=== PATIENT | female | born 1980 | race Caucasian/White ===

== ENCOUNTER 2021-04-04 11:30 | Outpatient (REF) | payer OTHER, SELFPAY | END 2021-04-04 11:31 | disposition home or self-care (01) | LOC: HO.LNP 11:30 | PROVIDERS: Visit Provider Physician Assistant Medical | DX: J32.9 Chronic sinusitis, unspecified (principal); Z20.822 Contact with and (suspected) exposure to COVID-19 | CPT/HCPCS: U0003; U0005 ==

== ENCOUNTER 2021-08-31 03:08 | Emergency (ER) | payer OTHER, SELFPAY ==
[2021-08-31 03:10] VITALS: BP 99/60; PULSE 71; RESP 16; TEMP 35.5; O2SAT 98; BMI 32.8
== END 2021-08-31 05:00 | disposition left against medical advice (07) ==
PROVIDERS: Emergency Provider Emergency Medicine; PCP Internal Medicine
DX: R07.89 Other chest pain (principal)
CPT/HCPCS: 99281; 99282

== ENCOUNTER 2022-06-07 16:51 | Emergency (ER) | payer OTHER, SELFPAY ==
[2022-06-07 17:15] VITALS: BP 117/75; PULSE 82; RESP 20; TEMP 36.2; O2SAT 96; BMI 29.7
== END 2022-06-07 21:30 | disposition left against medical advice (07) ==
PROVIDERS: Emergency Provider Emergency Medicine; PCP Internal Medicine
DX: F11.20 Opioid dependence, uncomplicated (principal)
CPT/HCPCS: 99281

== ENCOUNTER 2024-01-26 10:44 | Outpatient (AMB) | payer OTHER, SELFPAY ==
[2024-01-26 10:57] VITALS: BP 130/90; PULSE 96; TEMP 36.6; O2SAT 96; BMI 34.3
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
== END 2024-01-26 12:33 | disposition home or self-care (01) ==
PROVIDERS: PCP Internal Medicine; Visit Provider Nurse Practitioner Family
DX: M79.89 Other specified soft tissue disorders (principal); L03.90 Cellulitis, unspecified
CPT/HCPCS: 99214

== ENCOUNTER 2024-01-26 11:28 | Outpatient (REF) | payer OTHER, SELFPAY ==
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
== END 2024-01-26 11:29 | disposition home or self-care (01) ==
LOC: HO.HMGCX 11:28
PROVIDERS: PCP Internal Medicine; Visit Provider Nurse Practitioner Family
DX: M79.89 Other specified soft tissue disorders (principal)
CPT/HCPCS: 73110; 73130

== ENCOUNTER 2024-01-27 22:25 | Inpatient (IN) | payer OTHER, SELFPAY ==
--- NOTE | ~2024-01-27 | XR_ITS ---
EXAMINATION: XR HAND, RIGHT CLINICAL INFORMATION: Entire hand is grossly swollen and red. Patient states that palm side of 3rd finger has a discharge and she had it looked at, at Urgent care yesterday and was put on antibiotics. COMPARISON: None available. TECHNIQUE: PA, lateral, and oblique views of the right hand. FINDINGS: Diffuse soft tissue swelling. No unexpected radiopaque foreign bodies. No acute fracture or subluxation. No focal cortical disruption or erosive changes to suspect osteomyelitis. XR/XR hand RT min 3V IMPRESSION: 1. Diffuse soft tissue swelling. 2. No acute fracture or malalignment. 3. No radiographic evidence of osteomyelitis.
[2024-01-27 22:49] VITALS: BP 117/66; PULSE 105; RESP 20; TEMP 37.2; O2SAT 98; BMI 32.9
[2024-01-28 00:01] LABS: MANUAL DIFF FLAG NO
[2024-01-28 00:05] LABS: Basophils Percent Auto 0.2 % (0-2); Eosinophils Percent Auto 0.2 % (0-4); Hematocrit 38.2 % (37.0-47.0); Hemoglobin 11.9 g/dl (12.0-16.0); Imm Gran Pct Auto 0.5 % (0.0-0.4); Lymphocytes Absolute Auto 1.1 X10*3/uL (1.2-4.9); Lymphocytes Percent Auto 6.3 % (20-40); Mean Corpuscular HGB Conc 31.2 g/dl (31.0-35.0); Mean Corpuscular Hemoglobin 25.6 pg (27.0-33.0); Mean Corpuscular Volume 82.3 fL (80.0-98.0); Mean Platelet Volume 9.4 fL (9.4-12.3); Monocytes Absolute Auto 1.2 X10*3/uL (0.1-1.2); Monocytes Percent Auto 6.8 % (2-11); Neutrophils Absolute Auto 15.6 x10*3/uL (2.0-8.3); Platelet Count 276 X10*3/uL (160-400); Red Blood Count 4.64 X10*6/uL (4.20-5.50); Red Cell Distribution Width 15.9 % (11.0-16.0); White Blood Count 18.2 X10*3/uL (4.8-10.8)
[2024-01-28 00:16] LABS: Alanine Aminotransferase 20 U/L (0-31); Albumin Level 3.6 g/dL (3.5-5.0); Alkaline Phosphatase 90 U/L (39-117); Anion Gap 15 (12-20); Aspartate Amino Transferase 17 U/L (5-31); Bilirubin Total 0.3 mg/dL (0.0-1.0); Blood Urea Nitrogen 15 mg/dL (9-16); C Reactive Protein 27.72 mg/dL (< or = 0.50); Calcium 9.3 mg/dL (8.4-10.2); Carbon Dioxide 20 mmol/L (22-29); Chloride 107 mmol/L (96-108); Creatinine Clr Calc Pharmacy 96.6; Estimated Glomerular Filt Rate > 60; Glucose Random 148 mg/dL (60-115); Sodium 138 mmol/L (135-145); Total Protein 8.6 g/dL (6.5-8.0)
[2024-01-28 00:42] LABS: Erythrocyte Sedimentation Rate 69 MM/HR (0-20)
--- NOTE | 2024-01-28 02:38 | ED.EXTPRO ---
HPI - Extremity Problem General Chief complaint: Extremity Problem Stated complaint: R finger swollen / weeping Time Seen by Provider: 01/28/24 01:57 Source: patient and old records reviewed Mode of arrival: ambulatory Limitations: no limitations History of Present Illness ED Provider: BLAISE ESCOBAR Narrative: 43 yo female with PMH of opiate use disorder notes she only sniffs now, R hand dominant, asthma here with c/o R middle finger infection and pain/redness swelling unknown cause has worsened went to urgent care yesterday started on cephalexin but has not improved. The patient denies prior infection in this area. Has pain. Also notes she wants to get back on methadone. MD Complaint: extremity swelling and other (finger infection) Onset (ago): day(s) (few) Pain Consistency: constant Location: right and upper extremity Quality: aching Radiation: none Relieving factors: immobilization Exacerbating factors: palpation Associated symptoms: denies other symptoms Context: other (unknown cause) Related Data Previous Rx's ?Medication ?Instructions ?Recorded fluticasone propionate 50 1 spray intranasal DAILY #16 grams 04/04/21 mcg/actuation nasal spray,suspension albuterol sulfate 90 mcg/actuation 2 puff PO Q4H PRN shortness of 04/08/21 aerosol inhaler breath or wheezing 30 days #8.5 grams cephalexin 500 mg capsule 500 mg PO BID 7 days #14 caps 01/26/24 ibuprofen 800 mg tablet 800 mg PO Q8H #90 tabs 01/26/24 Allergies Allergy/AdvReac Type Severity Reaction Status Date / Time acetaminophen [From TYLENOL] Allergy Intermediate RASH Verified 01/27/24 22:53 Review of Systems Review of Systems: Constitutional : No Fever, No Chills ENT/Mouth : No sore throat, No Rhinorrhea Eyes: No Eye Pain, No Swelling, No Redness Cardiovascular : No Chest Pain, No SOB Respiratory : No Cough, No Sputum Gastrointestinal : No Nausea, No Vomiting, No Diarrhea, No abdominal Pain Genitourinary : No Dysuria, No Hematuria Musculoskeletal : pos joint pain, No Myalgias, pos Joint Swelling Skin : pos Skin Lesions, positive skin rash Neuro : No Weakness, No Numbness, No Headache Psych : No Anxiety, No Depression Heme/Lymph: No Bruising, No Bleeding,No Lymphadenopathy Endocrine : No Polyuria, No Polydipsia All other systems reviewed and are negative PMFSH Past Medical History Attestation statement: The following information was validated with the patient. Source: old records reviewed Medical History Neuropathy Migraines Asthma Hepatitis C Epilepsy Social History Social History Patient Tobacco Use Status: Current everyday Tobacco user Smoked in Last 30 Days: Yes Use of substances other than those prescribed or required for medical reasons: Yes Substance Use Type: Heroin Substance Use Frequency: Occasionally Last Used Substance: Days (ago) Advance Directives: No Advance Directives Information Provided: Yes Do you have a plan to hurt others: No Plan Patient : No Physical Exam Vital Signs: Vital Signs: Last Vital Signs Temp 98.9 F 01/27/24 22:49 Pulse 105 H 01/27/24 22:49 Resp 20 01/27/24 22:49 BP 117/66 01/27/24 22:49 Pulse Ox 98 01/27/24 22:49 O2 Del Method Room Air 01/27/24 22:49 BMI result Body Mass Index 32.9 Appearance: Alert. Oriented X3. No acute distress. Eyes: Pupils equal, round and reactive to light. ENT: Pharynx normal. Neck: Normal inspection. Neck supple. CVS: Normal heart rate and rhythm. Pulses normal. Respiratory: No respiratory distress. Breath sounds normal. Abdomen: Soft and nontender. Skin: Skin warm and dry. Normal skin color. Extremities: R middle finger sausage finger swollen and red distal NV intact tenderness to prox tendon sheath and she cannot bend or flex and finger is held contracted. ttp please see pictures below Neuro: Oriented X 3. No motor deficit. No sensory deficit. Medical Decision Making Medical Decision Making MDM Narrative: 43 yo female with PMH of opiate use disorder notes she only sniffs now, R hand dominant, asthma who has had R middle finger pain and swelling for the past few days doesn't know why the finger is concerning for abscess and tendon sheath infection she will need to be kept NPO and started on IV antibiotics, cultures, lactic acid and 40mg methadone ordered as she wants to get back on methadone. Consult to Cristina from ortho - keep NPO will see in AM. Differential Diagnosis Differential Diagnoses: The differential diagnosis associated with the presentation includes abscess, tendon sheath infection Admission/Observation Consideration of admission/observation: Escalation of care including admission/observation considered admit for IV antibiotics Consult Healthcare Provider Management of the patient was discussed with: Hospitalist (will admit) and Defensive Secondary Coach (orthopedics aware keep NPO) Lab Data MDM Lab Attestation statement: I reviewed the patient's lab results. 01/27/24 23:55 01/27/24 23:55 Labs: Lab Results 01/27/24 Range/Units 23:55 WBC 18.2 H (4.8-10.8) X10*3/uL RBC 4.64 (4.20-5.50) X10*6/uL Hgb 11.9 L (12.0-16.0) g/dl Hct 38.2 (37.0-47.0) % MCV 82.3 (80.0-98.0) fL MCH 25.6 L (27.0-33.0) pg MCHC 31.2 (31.0-35.0) g/dl RDW 15.9 (11.0-16.0) % Plt Count 276 (160-400) X10*3/uL MPV 9.4 (9.4-12.3) fL Immature Gran % (Auto) 0.5 H (0.0-0.4) % Neut % (Auto) 86.0 H (45-73) % Lymph % (Auto) 6.3 L (20-40) % [place] % (Auto) 6.8 (2-11) % Eos % (Auto) 0.2 (0-4) % Baso % (Auto) 0.2 (0-2) % Lymph # (Auto) 1.1 L (1.2-4.9) X10*3/uL [place] # (Auto) 1.2 (0.1-1.2) X10*3/uL Eos # (Auto) 0.0 (0.0-0.4) X10*3/uL Baso # (Auto) 0.0 (0.0-0.2) X10*3/uL Abs Immat Gran (auto) 0.10 H (0.00-0.03) X10*3/uL Absolute Neuts (auto) 15.6 H (2.0-8.3) x10*3/uL Absolute Nucleated RBC 0.000 (0.0-0.012) X10*3/uL Nucleated RBC % (auto) 0.0 (0.0-0.2) /100WBC ESR 69 H (0-20) MM/HR Sodium 138 (135-145) mmol/L Potassium 4.0 (3.3-5.1) mmol/L Chloride 107 (96-108) mmol/L Carbon Dioxide 20 L (22-29) mmol/L Anion Gap 15 (12-20) BUN 15 (9-16) mg/dL Creatinine 0.89 (0.5-1.4) mg/dL Estim Creat Clear Calc 96.6 Estimated GFR > 60 Random Glucose 148 H (60-115) mg/dL Calcium 9.3 (8.4-10.2) mg/dL Total Bilirubin 0.3 (0.0-1.0) mg/dL AST 17 (5-31) U/L ALT 20 (0-31) U/L Alkaline Phosphatase 90 (39-117) U/L C-Reactive Protein 27.72 H (< or = 0.50) mg/dL Total Protein 8.6 H (6.5-8.0) g/dL Albumin 3.6 (3.5-5.0) g/dL Independent Interpretation I performed an independent interpretation of an: Plain X-Ray (no FB) Radiology Impression Discussion of test interpretation with radiology: I have reviewed the radiologist's reading. External Record Review External record reviewed: Inpatient record Discharge Plan Discharge Clinical Impression: Cellulitis, Finger infection Patient Disposition: Admitted As Inpatient Prescriptions: No Action albuterol sulfate 90 mcg/actuation HFA aerosol inhaler 2 puff PO Q4H PRN (Reason: shortness of breath or wheezing) 30 Days Qty: 8.5 6RF fluticasone propionate 50 mcg/actuation spray,suspension 1 spray intranasal DAILY Qty: 16 0RF Rx Instructions: administer into each nostril cephalexin 500 mg capsule 500 mg PO BID 7 Days Qty: 14 0RF ibuprofen 800 mg tablet 800 mg PO Q8H Qty: 90 0RF Print Language: Cymraes
[2024-01-28] MEDS: 0.9 % Sodium Chloride 1,000 ML 999 ML IV (02:46)
[2024-01-28] MEDS: methADONE HCl 20 MG/2 ML ORAL.CONC 40 MG PO (02:47)
[2024-01-28] MEDS: Piperacillin Sodium/Tazobactam 3.375 GM in 0.9 % Sodium Chloride 50 ML IV (02:54)
--- NOTE | 2024-01-28 02:54 | PM.IMHP ---
History of Present Illness Date of Service: 01/28/24 Chief Complaint: Finger infection This is a 43-year-old female with pertinent history of opiate use disorder, seizure disorder, neuropathy who presents to the emergency department for evaluation of right finger swelling and pain. Patient states it started few days prior to presentation. Initially she had pain in her right middle finger. This progressed and she noted that it was red and swollen. Patient went to urgent care 1 day prior to presentation and was prescribed p.o. antibiotics but no improvement noted. On the day of presentation, patient states it has been draining purulent fluid. She is unable to bend or flex the finger. States she currently only sniffs drugs, last used intravenously 2 months ago. No previous infection. No fever, chills, nausea, vomiting, chest discomfort, palpitations, shortness of breath, abdominal pain changes in urinary or bowel habits. In the emergency department, patient was found to be septic and initiated on empiric IV antibiotics. Orthopedic surgery consulted who will take the patient to the OR in a.m. FORMERLY [facility], [facility] Medical History Neuropathy Migraines Asthma Hepatitis C Epilepsy Social History Patient Tobacco Use Status: Current everyday Tobacco user Smoked in Last 30 Days: Yes Use of substances other than those prescribed or required for medical reasons: Yes Substance Use Type: Heroin Substance Use Frequency: Occasionally Last Used Substance: Days (ago) Advance Directives: No Advance Directives Information Provided: Yes Do you have a plan to hurt others: No Plan Patient : No Meds Allergies Allergy/AdvReac Type Severity Reaction Status Date / Time acetaminophen [From TYLENOL] Allergy Intermediate RASH Verified 01/27/24 22:53 Active Medications: Current Medications Sodium Chloride (Ns) 1,000 mls @ 999 mls/hr IV .Q1H1M ONE Stop: 01/28/24 03:02 Last Admin: 01/28/24 02:46 Dose: 999 mls/hr Vancomycin HCl (Vancomycin/Ns) 2,000 mg in 500 mls @ 250 mls/hr IV ONCE ONE Stop: 01/28/24 04:01 Pharmacy Consult (Consult Rx Vancomycin Dosing) 1 each MISCELLANE DAILY PRN PRN Reason: Consult order Physical Exam Vital Signs and Narrative: Vital Signs: Last Vital Signs Temp 98.9 F 06/07/24 22:49 Pulse 105 H 01/27/24 22:49 Resp 20 01/27/24 22:49 BP 117/66 01/27/24 22:49 Pulse Ox 98 01/27/24 22:49 O2 Del Method Room Air 01/27/24 22:49 BMI result Body Mass Index 32.9 Middle-aged female lying in bed in no distress Neck supple, no JVD Regular rate and rhythm, S1-S2 heard Regular breath sounds bilaterally, no wheezing or crackles appreciated Abdomen soft nontender, no guarding, no rigidity Patient is awake, alert and oriented to self, place, time and person ; no focal motor deficit Psych: Normal mood Right middle finger swollen, erythematous, tenderness present with purulent drainage as pictured below Skin: Other: Results Labs 01/27/24 23:55 01/27/24 23:55 Labs: Laboratory Results - last 24 hr 01/27/24 23:55 MCV 82.3 MCH 25.6 L MCHC 31.2 RDW 15.9 Plt Count 276 MPV 9.4 Immature Gran % (Auto) 0.5 H Neut % (Auto) 86.0 H Lymph % (Auto) 6.3 L [place] % (Auto) 6.8 Eos % (Auto) 0.2 Baso % (Auto) 0.2 Lymph # (Auto) 1.1 L [place] # (Auto) 1.2 Eos # (Auto) 0.0 Baso # (Auto) 0.0 Abs Immat Gran (auto) 0.10 H Absolute Neuts (auto) 15.6 H Absolute Nucleated RBC 0.000 Nucleated RBC % (auto) 0.0 ESR 69 H Anion Gap 15 Estim Creat Clear Calc 96.6 Estimated GFR > 60 Random Glucose 148 H Calcium 9.3 Total Bilirubin 0.3 AST 17 ALT 20 Alkaline Phosphatase 90 C-Reactive Protein 27.72 H Total Protein 8.6 H Albumin 3.6 Imaging Radiologist's Impressions: Impressions Hand X-Ray 01/27/24 23:53 IMPRESSION: 1. Diffuse soft tissue swelling. 2. No acute fracture or malalignment. 3. No radiographic evidence of osteomyelitis. Assessment and Plan (1) Finger infection: Status: Acute (2) Cellulitis: Qualifiers: Laterality: right Site of cellulitis: extremity Site of cellulitis of extremity: upper extremity Qualified Code(s): L03.113 - Cellulitis of right upper limb Status: Acute Plan This is a 43-year-old female with pertinent history of opiate use disorder, seizure disorder, neuropathy who presents to the emergency department for evaluation of right finger swelling and pain. #. Sepsis due to right middle finger purulent cellulitis: With concerns for underlying infection. Resuscitated with IV crystalloids. Initiating empiric IV antibiotics. Orthopedic surgery consulted who will evaluate the patient in a.m.. Will keep patient NPO. Lactic acid and blood culture obtained #. Polysubstance use disorder: UDS pending. Monitor for withdrawals. Addiction Team consulted #. Seizure disorder: On Depakote #. Peripheral neuropathy: On gabapentin Med rec pending DVT prophylaxis: Mechanical Full code Admit as inpatient and will require two night minimum hospital stay for IV antibiotics (as above), which is not possible in a lesser acute setting. Specialist consult pending Quality Stroke Does the patient have a stroke diagnosis?: No VTE Prior VTE?: No VTE Risk Level:: Medical - moderate - high VTE Device Contraindication: N/A - Device Ordered VTE Drug Contraindication: Treatment Not Indicated
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
[2024-01-28 03:10] LABS: Lactic Acid 1.4 mmol/L (0.5-2.0)
[2024-01-28 03:12] VITALS: BP 125/72; PULSE 85; RESP 16; TEMP 36.8; O2SAT 96
[2024-01-28] MEDS: vancomycin/NS 2,000 MG/500 ML PLAST..BAG 250 MG IV (03:36)
[2024-01-28] MEDS: Magnesium Hydrox/Alum Hydrox 30 ML ORAL.SUSP PO (04:06)
[2024-01-28 04:09] LABS: Amphetamine Screen Urine Not Detected (Not Detect); Barbiturates, Urine Not Detected (Not Detect); Benzodiazepines Screen Urine Not Detected (Not Detect); Buprenorphine Scr Not Detected (Not Detect); Cannabinoid Screen Urine Not Detected (Not Detect); Cocaine Screen Urine POSITIVE (Not Detect); Fentanyl, urine POSITIVE (Not Detect); Methadone Screen, Urine Not Detected (Not Detect); Opiate Screen Urine POSITIVE (Not Detect); Oxycodone Screen Urine Not Detected (Not Detect); Phencyclidine Screen Urine Not Detected (Not Detect)
[2024-01-28 06:01] VITALS: BP 113/58; PULSE 74; RESP 16; TEMP 36.9; O2SAT 97
[2024-01-28 06:33] LABS: Basophils Percent Auto 0.1 % (0-2); Eosinophils Absolute Auto 0.1 X10*3/uL (0.0-0.4); Eosinophils Percent Auto 0.7 % (0-4); Hematocrit 33.8 % (37.0-47.0); Hemoglobin 10.4 g/dl (12.0-16.0); Imm Gran Abs Auto 0.08 X10*3/uL (0.00-0.03); Imm Gran Pct Auto 0.5 % (0.0-0.4); Lymphocytes Percent Auto 12.2 % (20-40); Mean Corpuscular HGB Conc 30.8 g/dl (31.0-35.0); Mean Corpuscular Hemoglobin 26.1 pg (27.0-33.0); Mean Corpuscular Volume 84.9 fL (80.0-98.0); Mean Platelet Volume 10.9 fL (9.4-12.3); Monocytes Absolute Auto 1.3 X10*3/uL (0.1-1.2); Monocytes Percent Auto 8.1 % (2-11); Neutrophils Absolute Auto 12.6 x10*3/uL (2.0-8.3); Neutrophils Percent Auto 78.4 % (45-73); Platelet Count 221 X10*3/uL (160-400); Red Blood Count 3.98 X10*6/uL (4.20-5.50); Red Cell Distribution Width 15.9 % (11.0-16.0); White Blood Count 16.1 X10*3/uL (4.8-10.8)
[2024-01-28 06:48] LABS: Anion Gap 15 (12-20); Blood Urea Nitrogen 14 mg/dL (9-16); Calcium 8.7 mg/dL (8.4-10.2); Carbon Dioxide 20 mmol/L (22-29); Chloride 109 mmol/L (96-108); Creatinine Clr Calc Pharmacy 103.5; Estimated Glomerular Filt Rate > 60; Glucose Random 97 mg/dL (60-115); Potassium 3.7 mmol/L (3.3-5.1); Sodium 140 mmol/L (135-145)
--- NOTE | 2024-01-28 07:30 | P.CONOP_ITS ---
History of Present Illness HPI Consult date: 01/28/24 Chief complaint: Finger Infection Narrative: Ms Valverde is a 43 yo female with past medical history of opiate use disorder, seizure disorder, neuropathy who presents to the emergency department for evaluation of right finger swelling and pain. Patient states it started few days prior to presentation. Initially she had pain in her right middle finger. This progressed and she noted that it was red and swollen. Patient went to urgent care 1 day prior to presentation and was prescribed p.o. antibiotics but no improvement noted. On the day of presentation, patient states it has been draining purulent fluid. She is unable to bend or flex the finger. States she currently only sniffs drugs, last used intravenously 2 months ago. She was started on IV abx, admitted to the medicine service with orthopedic consult. Review of Systems 2 Review of Systems: Yes all other systems are reviewed and are negative PMFSH Past Medical History Medical History Neuropathy Migraines Asthma Hepatitis C Epilepsy Social History Social History Household Members: Spouse Housing: Other Do you presently have visiting nurse or other home services: No Patient Tobacco Use Status: Current everyday Tobacco user Tobacco use type: Cigarette Cigarette Packs Per Day: 1.5 Cigarettes Per Day: 30.0 Substance Use Type: Heroin and Opiates Meds Allergies Allergy/AdvReac Type Severity Reaction Status Date / Time acetaminophen [From TYLENOL] Allergy Intermediate RASH Verified 01/27/24 22:53 Active Medications: Current Medications Acetaminophen (Acetaminophen 325 Mg Tablet) 650 mg PO Q6H PRN PRN Reason: Pain, Mild (Pain Scale 1-3) Piperacillin Sod/Tazobactam (Sod 4.5 gm/ Sodium Chloride) 100 mls @ 200 mls/hr IV Q6H [facility] Last Admin: 01/28/24 03:05 Dose: Not Given Melatonin (Melatonin 3 Mg Tablet) 6 mg PO BEDTIME PRN PRN Reason: Insomnia Ondansetron HCl (Ondansetron Hcl 4 Mg/2 Ml Vial) 4 mg IVPUSH Q8H PRN PRN Reason: Nausea and Vomiting Pharmacy Consult (Consult Rx Vancomycin Dosing) 1 each MISCELLANE DAILY PRN PRN Reason: Consult order Sodium Chloride (0.9 % Sodium Chloride Flush 3 Ml Syringe) 3 ml IVFLUSH QSHIFT [facility] Home Medications ?Medication ?Instructions ?Recorded ?Confirmed ?Last Taken ?Type divalproex 500 mg tablet,delayed 1,000 mg PO BEDTIME 01/28/24 01/28/24 Unknown History release divalproex 500 mg tablet,delayed 500 mg PO QAM 01/28/24 01/28/24 Unknown History release gabapentin 800 mg tablet 800 mg PO BID 01/28/24 01/28/24 Unknown History ibuprofen 800 mg tablet 800 mg PO Q8H PRN Pain 01/28/24 01/28/24 Unknown History Physical Exam 2 Vital Signs: Vital Signs: Last Vital Signs Temp 98.4 F 01/28/24 06:01 Pulse 74 01/28/24 06:01 Resp 16 01/28/24 06:01 BP 113/58 L 01/28/24 06:01 Pulse Ox 97 01/28/24 06:01 O2 Del Method Room Air 01/28/24 06:01 BMI result Body Mass Index 32.9 Extrem: Other: Right hand edematous and erythematous over the dorsal aspect of the hand and middle finger. Significant tenderness to all anatomical landmarks. Patient is able to demonstrate very slight flexion and extension. No areas of fluctuance. Sensation reportedly intact. Capillary refill is brisk. Results Labs 01/28/24 05:23 01/28/24 05:23 Labs: Abnormal lab results 01/27/24 01/28/24 01/28/24 Range/Units 23:55 03:48 05:23 WBC 18.2 H 16.1 H (4.8-10.8) X10*3/uL RBC 3.98 L (4.20-5.50) X10*6/uL Hgb 11.9 L 10.4 L (12.0-16.0) g/dl Hct 33.8 L (37.0-47.0) % MCH 25.6 L 26.1 L (27.0-33.0) pg MCHC 30.8 L (31.0-35.0) g/dl Immature Gran % (Auto) 0.5 H 0.5 H (0.0-0.4) % Neut % (Auto) 86.0 H 78.4 H (45-73) % Lymph % (Auto) 6.3 L 12.2 L (20-40) % Lymph # (Auto) 1.1 L (1.2-4.9) X10*3/uL [place] # (Auto) 1.3 H (0.1-1.2) X10*3/uL Abs Immat Gran (auto) 0.10 H 0.08 H (0.00-0.03) X10*3/uL Absolute Neuts (auto) 15.6 H 12.6 H (2.0-8.3) x10*3/uL ESR 69 H (0-20) MM/HR Chloride 109 H (96-108) mmol/L Carbon Dioxide 20 L 20 L (22-29) mmol/L Random Glucose 148 H (60-115) mg/dL C-Reactive Protein 27.72 H (< or = 0.50) mg/dL Total Protein 8.6 H (6.5-8.0) g/dL Urine Opiates Screen POSITIVE H (Not Detect) Urine Fentanyl Screen POSITIVE H (Not Detect) Urine Cocaine Screen POSITIVE H (Not Detect) H & H 01/27/24 01/28/24 Range/Units 23:55 05:23 Hgb 11.9 L 10.4 L (12.0-16.0) g/dl Hct 38.2 33.8 L (37.0-47.0) % All other labs normal. Assessment and Plan (1) Finger infection: Status: Acute Continue IV abx and monitor for signs of improvement Keep NPO after midnight in the event the patient needs to be brought to the OR Encourage gentle ROM Pain management as appropriate (2) Cellulitis: Qualifiers: Laterality: right Site of cellulitis: extremity Site of cellulitis of extremity: upper extremity Qualified Code(s): L03.113 - Cellulitis of right upper limb Status: Acute Procedures Date of Service Date of Service: 01/28/24
--- NOTE | 2024-01-28 08:05 | PHA.PROG ---
Admission Date/Time: January 28, 2024 02:53 Indication: SEPSIS Weight in k.254 kg Adjusted body weight in K.062 Lorenzo body weight in Kg: Obesity Dosing Indication % IBW: Serum Creatinine - Last 168 Hours 01/27/24 01/28/24 23:55 05:23 Creatinine 0.89 0.83 Estimated CrCl and GFR - Last 168 Hours 01/27/24 01/28/24 23:55 05:23 Estim Creat Clear Calc 96.6 103.5 Estimated GFR > 60 > 60 Vancomycin Loading Dose: 2000 MG Current Vancomycin Dosing Regimen: 1250 MG Q12 H Vancomycin Monitoring using AUC goal of 400 - 600 range with trough as surrogate marker: AUC 517; TROUGH 16.2 Date and Time for next Vancomycin Level to be drawn: 01/28 @1400 Pharmacist Comments on Vancomycin Plan: Vancomycin dosing will take advantage of [employer] as a clinical decision support tool that uses Bayesian modeling to calculate individual patient's pharmacokinetic parameters and forecast the patient's drug concentration time course with the target goal AUC 24 range of 400 - 600 mg/L/hr.
[2024-01-28] MEDS: Piperacillin Sodium/Tazobactam 4.5 GM in 0.9 % Sodium Chloride 100 ML IV (08:59)
[2024-01-28 09:04] VITALS: BP 93/38; PULSE 83; RESP 16; TEMP 37.1; O2SAT 93
--- NOTE | 2024-01-28 09:15 | PC.NURSE ---
patient resting quietly in bed arousable to verbal stimuli. patient VSS, respirations equal and unlabored. patient medicated per MAR
--- NOTE | 2024-01-28 12:38 | PM.EVENT ---
Event Note Date of Service: 01/28/24 Event Note: pt seen and examined, labs meds, imaging revie. Has cellulitis of hand as in picuture. Seen by ortho, continue Abx for now, may need surgery. Add Acyclovir for possible Fernando, Add ID consult Time Spent With Patient Time: Total time managing care of this patient today ____ minutes.
[2024-01-28] MEDS: Clindamycin Phosphate/D5W 600 MG/50 ML PIGGYBACK 100 MG IV ×2 (13:15→21:00)
--- NOTE | 2024-01-28 13:16 | PHA.MEDREC ---
Addendum entered by Josefina Nieves [facility] 01/28/24 13:39: Dr. Pierson was made aware of the issue of verifying gabapentin and divalproex with patient. Original Note: Pharmacy Consult ? Medication Reconciliation Pharmacy has completed the medication reconciliation. Spoke to patient and tried to confirm medication list. She was drifting in and out of sleep and didn't know the direction for gabapentin and divalproex. Left voicemail for spouse to verify but didn't hear back from him so for those 2 medications, pharmacy claims were used as source.
[2024-01-28 15:36] VITALS: BP 108/77; PULSE 95; RESP 18; TEMP 37.1; O2SAT 97
[2024-01-28] MEDS: oxyCODONE HCl Immed Release 5 MG TABLET PO (15:55)
--- NOTE | 2024-01-28 15:57 | PC.NURSE ---
patient resting quietly in bed, medicated with prn pain medication, pain to hand is 7/10. patient is alert and oriented VSS
[2024-01-28] MEDS: vancomycin HCL 1,250 MG in 0.9 % Sodium Chloride 250 ML 166.67 MG IV (17:08)
--- NOTE | 2024-01-28 17:58 | HO.ADDICT_ITS ---
History of Present Illness Date of Service: 01/28/2024 Chief Complaint: Finger Infection Reason for Consult: OUD Sources of Information: patient interviewed and chart reviewed HPI Narrative: Patient is a 43 year old female medically admitted with cellulitis to the middle of finger of the right hand. During evaluation in ED patient reported opiate use and agreeable to methadone. Methadone 40mg administered with positive effect (2am 01/27). Patient seen in ED 22-awaiting room assignment. present at time of interview. Patient reports she was previously on methadone at 130mg. She has not been engaged in treatment for over a year. At this time she reports using approximately one bundle of heroin/fentanyl IN daily. Occasionally smokes crack cocaine. Denies any other substance use including alcohol At time of evaluation, she is reporting pain in her hand, throbbing. Denies withdrawal sx. Appearing comfortable, no diaphoresis, yawning, restlessness, rhinorrea noted. She would like to continue titrating methadone with plan to continue post discharge . Review of Systems Constitutional: Reports as per HPI and Reports no additional constitutional complaints Diagnostics Vital Signs (24Hr): Vital Signs - 24 hr 01/27/24 22:49 01/28/24 03:12 01/28/24 06:01 Temperature 98.9 F 98.3 F 98.4 F Pulse Rate 105 H 85 74 Respiratory Rate 20 16 16 Blood Pressure 117/66 125/72 113/58 L Pulse Oximetry 98 96 97 Oxygen Delivery Method Room Air Room Air Room Air 01/28/24 09:04 01/28/24 15:36 Temperature 98.8 F 98.8 F Pulse Rate 83 95 Respiratory Rate 16 18 Blood Pressure 93/38 L 108/77 Pulse Oximetry 93 97 Oxygen Delivery Method Room Air Room Air BMI result Body Mass Index 32.9 Labs 01/28/24 05:23 01/28/24 05:23 Labs: Laboratory Results - last 48 hr 01/27/24 01/28/24 01/28/24 23:55 02:54 03:48 WBC 18.2 H RBC 4.64 Hgb 11.9 L Hct 38.2 MCV 82.3 MCH 25.6 L MCHC 31.2 RDW 15.9 Plt Count 276 MPV 9.4 Immature Gran % (Auto) 0.5 H Neut % (Auto) 86.0 H Lymph % (Auto) 6.3 L [place] % (Auto) 6.8 Eos % (Auto) 0.2 Baso % (Auto) 0.2 Lymph # (Auto) 1.1 L [place] # (Auto) 1.2 Eos # (Auto) 0.0 Baso # (Auto) 0.0 Abs Immat Gran (auto) 0.10 H Absolute Neuts (auto) 15.6 H Absolute Nucleated RBC 0.000 Nucleated RBC % (auto) 0.0 ESR 69 H Sodium 138 Potassium 4.0 Chloride 107 Carbon Dioxide 20 L Anion Gap 15 BUN 15 Creatinine 0.89 Estim Creat Clear Calc 96.6 Estimated GFR > 60 Random Glucose 148 H Lactic Acid 1.4 Calcium 9.3 Total Bilirubin 0.3 AST 17 ALT 20 Alkaline Phosphatase 90 C-Reactive Protein 27.72 H Total Protein 8.6 H Albumin 3.6 Urine Opiates Screen POSITIVE H Ur Buprenorphine Scrn Not Detected Ur Oxycodone Screen Not Detected Urine Methadone Screen Not Detected Urine Fentanyl Screen POSITIVE H Ur Barbiturates Screen Not Detected Ur Phencyclidine Scrn Not Detected Ur Amphetamines Screen Not Detected U Benzodiazepines Scrn Not Detected Urine Cocaine Screen POSITIVE H U Marijuana (THC) Screen Not Detected 01/28/24 05:23 WBC 16.1 H RBC 3.98 L Hgb 10.4 L Hct 33.8 L MCV 84.9 MCH 26.1 L MCHC 30.8 L RDW 15.9 Plt Count 221 MPV 10.9 Immature Gran % (Auto) 0.5 H Neut % (Auto) 78.4 H Lymph % (Auto) 12.2 L [place] % (Auto) 8.1 Eos % (Auto) 0.7 Baso % (Auto) 0.1 Lymph # (Auto) 2.0 [place] # (Auto) 1.3 H Eos # (Auto) 0.1 Baso # (Auto) 0.0 Abs Immat Gran (auto) 0.08 H Absolute Neuts (auto) 12.6 H Absolute Nucleated RBC 0.000 Nucleated RBC % (auto) 0.0 ESR Sodium 140 Potassium 3.7 Chloride 109 H Carbon Dioxide 20 L Anion Gap 15 BUN 14 Creatinine 0.83 Estim Creat Clear Calc 103.5 Estimated GFR > 60 Random Glucose 97 Lactic Acid Calcium 8.7 D Total Bilirubin AST ALT Alkaline Phosphatase C-Reactive Protein Total Protein Albumin Urine Opiates Screen Ur Buprenorphine Scrn Ur Oxycodone Screen Urine Methadone Screen Urine Fentanyl Screen Ur Barbiturates Screen Ur Phencyclidine Scrn Ur Amphetamines Screen U Benzodiazepines Scrn Urine Cocaine Screen U Marijuana (THC) Screen Imaging Radiology Impressions: ITS Impressions Hand X-Ray 01/27/24 23:53 IMPRESSION: 1. Diffuse soft tissue swelling. 2. No acute fracture or malalignment. 3. No radiographic evidence of osteomyelitis. Mental Status Exam Mental Status Exam Patient Appearance: Well Grooomed and Appropriate Level of Consciousness: Awake, Appropriate and Alert Medications Medications Current Medications Albuterol Sulfate (Albuterol Sulfate 90 Mcg 8 Gm Inhaler) 2 puff INHALE Q4H PRN PRN Reason: shortness of breath or wheezing Clindamycin Phosphate (Cleocin) 600 mg in 50 mls @ 100 mls/hr IV Q8H [facility] Last Infusion: 01/28/24 14:04 Dose: Infused Vancomycin HCl 1,250 mg/ (Sodium Chloride) 250 mls @ 166.667 mls/hr IV Q12H [facility] Last Admin: 01/28/24 17:08 Dose: 166.67 mls/hr Melatonin (Melatonin 3 Mg Tablet) 6 mg PO BEDTIME PRN PRN Reason: Insomnia Methadone HCl (Methadone Hcl 20 Mg/2 Ml Oral.Conc) 50 mg PO DAILY [facility] Morphine Sulfate (Morphine Sulfate 2 Mg/Ml Cartridge) 2 mg IVPUSH Q6H PRN; Protocol PRN Reason: Pain, Severe (Pain Scale 7-10) Ondansetron HCl (Ondansetron Hcl 4 Mg/2 Ml Vial) 4 mg IVPUSH Q8H PRN PRN Reason: Nausea and Vomiting Oxycodone HCl (Oxycodone Hcl Immed Release 5 Mg Tablet) 5 mg PO Q4H PRN PRN Reason: Pain, Moderate(Pain Scale 4-6) Pharmacy Consult (Consult Rx Vancomycin Dosing) 1 each MISCELLANE DAILY PRN PRN Reason: Consult order Sodium Chloride (0.9 % Sodium Chloride Flush 3 Ml Syringe) 3 ml IVFLUSH QSHIFT [facility] Last Admin: 01/28/24 17:09 Dose: Not Given Allergies Allergies Allergy/AdvReac Type Severity Reaction Status Date / Time acetaminophen [From TYLENOL] Allergy Intermediate RASH Verified 01/27/24 22:53 Assessment & Plan Assessment & Plan (1) Opioid use disorder: Status: Acute Code(s): F11.90 - Opioid use, unspecified, uncomplicated Assessment and Plan: * methadone 50mg in AM * PRN pain medications * methadone 5mg PRN QD * Hep C+, needs HIV screen * will continue to follow Total time managing care of this patient today _35___ minutes. PMFSH Past Medical History Medical History Neuropathy Migraines Asthma Hepatitis C Epilepsy Social History Social History Patient Tobacco Use Status: Current everyday Tobacco user Smoked in Last 30 Days: Yes Use of substances other than those prescribed or required for medical reasons: Yes Substance Use Type: Heroin Substance Use Frequency: Occasionally Last Used Substance: Days (ago) Advance Directives: No Advance Directives Information Provided: Yes Do you have a plan to hurt others: No Plan Patient : No
[2024-01-28 20:43] VITALS: BP 149/74; PULSE 84; RESP 18; TEMP 36.9; O2SAT 96
[2024-01-28] MEDS: 0.9 % Sodium Chloride Flush 3 ML SYRINGE IVFLUSH (21:32)
[2024-01-29] VITALS (14 sets, daily range): BP systolic 110–157; BP diastolic 56–99; PULSE 66–95; RESP 14–18; TEMP 36.2–38.7; O2SAT 94–99
[2024-01-29] MEDS: Ibuprofen 600 MG TABLET PO (03:31)
[2024-01-29] MEDS: vancomycin HCL 1,250 MG in 0.9 % Sodium Chloride 250 ML 166.67 MG IV (03:56)
--- NOTE | 2024-01-29 04:05 | PC.NURSE ---
Pt's temp-101.7 no tylenol ordered notified ordered motrin 600mg po x 1 dose given at 0330.Will continue to monitor.
[2024-01-29] MEDS: Clindamycin Phosphate/D5W 600 MG/50 ML PIGGYBACK 100 MG IV ×2 (05:13→21:13)
--- NOTE | 2024-01-29 05:35 | PC.NURSE ---
pt's temp down to 99.4
[2024-01-29 07:41] LABS: Creatinine Clr Calc Pharmacy 130.2; Estimated Glomerular Filt Rate > 60
[2024-01-29] MEDS: 0.9 % Sodium Chloride Flush 3 ML SYRINGE IVFLUSH ×3 (07:47→21:13)
[2024-01-29] MEDS: methADONE HCl 20 MG/2 ML ORAL.CONC 50 MG PO (07:53)
--- NOTE | 2024-01-29 09:10 | P.PNIM_ITS ---
Subjective Subjective Date of Service: 01/29/24 Interval History: f/u on cellulitis of the hand interval hisotry: mild decrease in redness Physical Exam 2 Vital Signs: Vital Signs: Last Vital Signs Temp 98.8 F 01/29/24 07:19 Pulse 75 01/29/24 07:19 Resp 14 01/29/24 07:19 BP 110/70 01/29/24 07:19 Pulse Ox 94 01/29/24 07:19 O2 Del Method Room Air 01/29/24 07:19 BMI result Body Mass Index 32.9 General: AO X 3, no acute distress Resp: CTA bilateral CVS: S1,S2,RRR GI: +BS, NT, no distention Skin: No rash 01/28 Neuro: motor grossly intact Psych: appropriate affect Objective Data Active Medications Albuterol Sulfate (Albuterol Sulfate 90 Mcg 8 Gm Inhaler) 2 puff INHALE Q4H PRN PRN Reason: shortness of breath or wheezing Clindamycin Phosphate (Cleocin) 600 mg in 50 mls @ 100 mls/hr IV Q8H [facility] Last Infusion: 01/29/24 05:45 Dose: Infused Documented By: TEJA Vancomycin HCl 1,250 mg/ (Sodium Chloride) 250 mls @ 166.667 mls/hr IV Q12H [facility] Last Infusion: 01/29/24 05:28 Dose: Infused Documented By: TEJA Melatonin (Melatonin 3 Mg Tablet) 6 mg PO BEDTIME PRN PRN Reason: Insomnia Methadone HCl (Methadone Hcl 20 Mg/2 Ml Oral.Conc) 50 mg PO DAILY [facility] Last Admin: 01/29/24 07:53 Dose: 50 mg Documented By: PAMELA Morphine Sulfate (Morphine Sulfate 2 Mg/Ml Cartridge) 2 mg IVPUSH Q6H PRN; Protocol PRN Reason: Pain, Severe (Pain Scale 7-10) Ondansetron HCl (Ondansetron Hcl 4 Mg/2 Ml Vial) 4 mg IVPUSH Q8H PRN PRN Reason: Nausea and Vomiting Oxycodone HCl (Oxycodone Hcl Immed Release 5 Mg Tablet) 5 mg PO Q4H PRN PRN Reason: Pain, Moderate(Pain Scale 4-6) Pharmacy Consult (Consult Rx Vancomycin Dosing) 1 each MISCELLANE DAILY PRN PRN Reason: Consult order Sodium Chloride (0.9 % Sodium Chloride Flush 3 Ml Syringe) 3 ml IVFLUSH QSHIFT [facility] Last Admin: 01/29/24 07:47 Dose: 3 ml Documented By: PAMELA Labs 01/29/24 07:12 01/29/24 07:12 Labs: Laboratory Results - last 24 hr 01/29/24 07:12 Hold Purple Top SEE NOTE Estim Creat Clear Calc 130.2 Estimated GFR > 60 Microbiology Microbiology Results: Microbiology 01/28/24 02:54 Blood Culture - Preliminary Blood - Venous No growth after 24 hours. 01/28/24 02:23 Blood Culture - Preliminary Blood - Venous No growth after 24 hours. Assessment and Plan (1) Opioid use disorder: Status: Acute (2) Finger infection: Status: Acute (3) Cellulitis: Status: Acute Plan This is a 43-year-old female with pertinent history of opiate use disorder, seizure disorder, neuropathy who presents to the emergency department for evaluation of right finger swelling and pain. Sepsis due to right middle finger and hand cellulitis--minimal improvement -continue IV Vanco and Clindamycin, ID had suggested Zyvox however can cause serious serotonin syndrom in conjunction with methadone -Ortho following and may need I and D -NPO for possible surgery Polysubstance use disorder: continue methadone, addiction med consult Seizure disorder: Supposed to be on depakote 500 in am, and 1000 at night, last presribed on 10/10/23 for 270 tabs, she said she hs not taken in couple of weeks and the med has not been refilled. For now will continue as before until there is clarification from the Neurologist office when open tomorrow, check level Peripheral neuropathy: On gabapentin DVT prophylaxis: Mechanical, lovenox heparin after surgery Full code IV Abx for cellulitis of the hand, limb threatening Quality Stroke Does the patient have a stroke diagnosis?: No VTE Prior VTE?: No VTE Risk Level:: Medical - moderate - high VTE Device Contraindication: N/A - Device Ordered VTE Drug Contraindication: Treatment Not Indicated
[2024-01-29 09:22] LABS: MANUAL DIFF FLAG NO
[2024-01-29 09:28] LABS: Anion Gap 13 (12-20); Basophils Percent Auto 0.2 % (0-2); Eosinophils Absolute Auto 0.1 X10*3/uL (0.0-0.4); Eosinophils Percent Auto 0.6 % (0-4); Hematocrit 34.2 % (37.0-47.0); Hemoglobin 10.8 g/dl (12.0-16.0); Imm Gran Abs Auto 0.03 X10*3/uL (0.00-0.03); Imm Gran Pct Auto 0.3 % (0.0-0.4); Lymphocytes Absolute Auto 2.1 X10*3/uL (1.2-4.9); Lymphocytes Percent Auto 18.5 % (20-40); Mean Corpuscular HGB Conc 31.6 g/dl (31.0-35.0); Mean Corpuscular Hemoglobin 25.8 pg (27.0-33.0); Mean Corpuscular Volume 81.6 fL (80.0-98.0); Monocytes Absolute Auto 0.9 X10*3/uL (0.1-1.2); Monocytes Percent Auto 7.7 % (2-11); Neutrophils Absolute Auto 8.3 x10*3/uL (2.0-8.3); Neutrophils Percent Auto 72.7 % (45-73); Platelet Count 254 X10*3/uL (160-400); Red Blood Count 4.19 X10*6/uL (4.20-5.50); White Blood Count 11.5 X10*3/uL (4.8-10.8)
[2024-01-29 09:31] LABS: Carbon Dioxide 22 mmol/L (22-29); Chloride 106 mmol/L (96-108); Potassium 3.7 mmol/L (3.3-5.1); Sodium 137 mmol/L (135-145)
--- NOTE | 2024-01-29 10:17 | MHC.CM.PN ---
Patient and are staying with a friend in [place]. Address on file is mailing address, dad's house. Patient functionally independent. Denies use of services or DME. Re-started on Methadone at [facility]. Does not have a home clinic, last clinic was associated w/ the halfway. PCP Alexandria Manrique MD Completed HCP naming [facility] as [facility]. DP: Goal is home self care, friend to transport. Will need to establish w/ a home clinic, awaiting addiction med consult. Per ortho, will not require IV abx. CM will continue to follow.
--- NOTE | 2024-01-29 10:32 | PM.PNORT ---
Subjective Subjective Date of Service: 01/29/24 Interval history: Patient is resting in bed comfortably Reports no improvement with IV abx Continued right hand pain No overnight events No additional complaints Physical Exam Vital Signs: Vital Signs: Last Vital Signs Temp 98.8 F 01/29/24 07:19 Pulse 75 01/29/24 07:19 Resp 14 01/29/24 07:19 BP 110/70 01/29/24 07:19 Pulse Ox 94 01/29/24 07:19 O2 Del Method Room Air 01/29/24 07:19 BMI result Body Mass Index 32.9 Extrem: Other: Right hand edematous and erythematous over the dorsal aspect of the hand and middle finger. Significant tenderness to all anatomical landmarks. Patient is able to demonstrate very slight flexion and extension. Pocked of puss along the middle finger A1 ede extending into the palm. Sensation reportedly intact. Capillary refill is brisk. Procedures Date of Service Date of Service: 01/29/24 Progress Note: A&P Assessment and plan (1) Opioid use disorder: Status: Acute (2) Finger infection: Status: Acute Assessment and Plan: I discussed the case with Dr. Nieves and explained the extent of the injury to the patient and options available which include surgical intervention. I explained the procedure in detail along with the length of recovery and rehab course. I explained the risk, benefits and alternatives. Risk including, but not limited to infection, blood clots, bleeding, non union or malunion and nerve/tissue damage to surrounding areas. I answered all their questions and with their understanding they have consented to move forward with irrigation and debridement of the right hand. The patient will remain NPO. (3) Cellulitis: Status: Acute Time Spent With Patient Time: Total time managing care of this patient today ____ minutes. Quality Stroke Does the patient have a stroke diagnosis?: No VTE Prior VTE?: No VTE Risk Level:: Medical - moderate - high VTE Device Contraindication: N/A - Device Ordered VTE Drug Contraindication: Treatment Not Indicated
[2024-01-29 10:45] LABS: Valproate < 12.5 mcg/mL (50.0-100.0)
[2024-01-29] MEDS: Gabapentin 400 MG CAPSULE 800 MG PO ×2 (11:02→21:13)
[2024-01-29] MEDS: Divalproex Sodium 500 MG TABLET.DR PO (11:03)
--- NOTE | 2024-01-29 11:49 | HO.ANESPROP2 ---
HPI - Anesthesia Eval Consult details Narrative: Right hand infection PMFSH Active Problems Active Problems: All Active Problems Opioid use disorder (Acute) Finger infection (Acute) Cellulitis (Acute) Sinusitis (Acute) Past Medical History Medical History Neuropathy Migraines Asthma Hepatitis C Epilepsy Family History Family history of problems with anesthesia: No Surgical History History of Problems with Anesthesia: No Social History Social History Household Members: Spouse Housing: Other Do you presently have visiting nurse or other home services: No Patient Tobacco Use Status: Current everyday Tobacco user Tobacco use type: Cigarette Cigarette Packs Per Day: 1.5 Cigarettes Per Day: 30.0 Substance Use Type: Heroin and Opiates service: No Meds Allergies Allergy/AdvReac Type Severity Reaction Status Date / Time acetaminophen [From TYLENOL] Allergy Intermediate RASH Verified 01/27/24 22:53 Active Medications: Current Medications Albuterol Sulfate (Albuterol Sulfate 90 Mcg 8 Gm Inhaler) 2 puff INHALE Q4H PRN PRN Reason: shortness of breath or wheezing Divalproex Sodium (Divalproex Sodium 500 Mg Tablet.) 1,000 mg PO BEDTIME [facility] Divalproex Sodium (Divalproex Sodium 500 Mg Tablet.) 500 mg PO DAILY [facility] Last Admin: 01/29/24 11:03 Dose: 500 mg Gabapentin (Gabapentin 400 Mg Capsule) 800 mg PO BID [facility] Last Admin: 01/29/24 11:02 Dose: 800 mg Clindamycin Phosphate (Cleocin) 600 mg in 50 mls @ 100 mls/hr IV Q8H [facility] Last Infusion: 01/29/24 05:45 Dose: Infused Vancomycin HCl 1,250 mg/ (Sodium Chloride) 250 mls @ 166.667 mls/hr IV Q12H [facility] Last Infusion: 01/29/24 05:28 Dose: Infused Melatonin (Melatonin 3 Mg Tablet) 6 mg PO BEDTIME PRN PRN Reason: Insomnia Methadone HCl (Methadone Hcl 20 Mg/2 Ml Oral.Conc) 50 mg PO DAILY [facility] Last Admin: 01/29/24 07:53 Dose: 50 mg Morphine Sulfate (Morphine Sulfate 2 Mg/Ml Cartridge) 2 mg IVPUSH Q6H PRN; Protocol PRN Reason: Pain, Severe (Pain Scale 7-10) Ondansetron HCl (Ondansetron Hcl 4 Mg/2 Ml Vial) 4 mg IVPUSH Q8H PRN PRN Reason: Nausea and Vomiting Oxycodone HCl (Oxycodone Hcl Immed Release 5 Mg Tablet) 5 mg PO Q4H PRN PRN Reason: Pain, Moderate(Pain Scale 4-6) Pharmacy Consult (Consult Rx Vancomycin Dosing) 1 each MISCELLANE DAILY PRN PRN Reason: Consult order Sodium Chloride (0.9 % Sodium Chloride Flush 3 Ml Syringe) [facility] Last Admin: 01/29/24 07:47 Dose: 3 ml Home Medications ?Medication ?Instructions ?Recorded ?Confirmed ?Last Taken ?Type divalproex 500 mg tablet,delayed 1,000 mg PO BEDTIME 01/28/24 01/28/24 Unknown History release divalproex 500 mg tablet,delayed 500 mg PO QAM 01/28/24 01/28/24 Unknown History release gabapentin 800 mg tablet 800 mg PO BID 01/28/24 01/28/24 Unknown History ibuprofen 800 mg tablet 800 mg PO Q8H PRN Pain 01/28/24 01/28/24 Unknown History Exam Height,Weight and Vital Signs: Height 5 ft 7 in Weight 95.254 kg Last Vital Signs Temp 98.8 F 01/29/24 07:19 Pulse 75 01/29/24 07:19 Resp 14 01/29/24 07:19 BP 110/70 01/29/24 07:19 Pulse Ox 94 01/29/24 07:19 O2 Del Method Room Air 01/29/24 07:19 Pertinent Lab Results Pertinent Lab Results: Laboratory Tests 01/27/24 01/28/24 01/28/24 23:55 02:54 03:48 WBC 18.2 H RBC 4.64 Hgb 11.9 L Hct 38.2 MCV 82.3 MCH 25.6 L MCHC 31.2 RDW 15.9 Plt Count 276 MPV 9.4 Immature Gran % (Auto) 0.5 H Neut % (Auto) 86.0 H Lymph % (Auto) 6.3 L [place] % (Auto) 6.8 Eos % (Auto) 0.2 Baso % (Auto) 0.2 Lymph # (Auto) 1.1 L [place] # (Auto) 1.2 Eos # (Auto) 0.0 Baso # (Auto) 0.0 Abs Immat Gran (auto) 0.10 H Absolute Neuts (auto) 15.6 H Absolute Nucleated RBC 0.000 Nucleated RBC % (auto) 0.0 ESR 69 H Hold Purple Top Sodium 138 Potassium 4.0 Chloride 107 Carbon Dioxide 20 L Anion Gap 15 BUN 15 Creatinine 0.89 Estim Creat Clear Calc 96.6 Estimated GFR > 60 Random Glucose 148 H Lactic Acid 1.4 Calcium 9.3 Total Bilirubin 0.3 AST 17 ALT 20 Alkaline Phosphatase 90 C-Reactive Protein 27.72 H Total Protein 8.6 H Albumin 3.6 Urine Opiates Screen POSITIVE H Ur Buprenorphine Scrn Not Detected Ur Oxycodone Screen Not Detected Urine Methadone Screen Not Detected Urine Fentanyl Screen POSITIVE H Ur Barbiturates Screen Not Detected Valproic Acid Ur Phencyclidine Scrn Not Detected Ur Amphetamines Screen Not Detected U Benzodiazepines Scrn Not Detected Urine Cocaine Screen POSITIVE H U Marijuana (THC) Screen Not Detected 01/28/24 01/29/24 01/29/24 05:23 07:12 10:10 WBC 16.1 H 11.5 H RBC 3.98 L 4.19 L Hgb 10.4 L 10.8 L Hct 33.8 L 34.2 L MCV 84.9 81.6 MCH 26.1 L 25.8 L MCHC 30.8 L 31.6 RDW 15.9 16.0 Plt Count 221 254 MPV 10.9 10.0 Immature Gran % (Auto) 0.5 H 0.3 Neut % (Auto) 78.4 H 72.7 Lymph % (Auto) 12.2 L 18.5 L [place] % (Auto) 8.1 7.7 Eos % (Auto) 0.7 0.6 Baso % (Auto) 0.1 0.2 Lymph # (Auto) 2.0 2.1 [place] # (Auto) 1.3 H 0.9 Eos # (Auto) 0.1 0.1 Baso # (Auto) 0.0 0.0 Abs Immat Gran (auto) 0.08 H 0.03 Absolute Neuts (auto) 12.6 H 8.3 Absolute Nucleated RBC 0.000 0.000 Nucleated RBC % (auto) 0.0 0.0 ESR Hold Purple Top SEE NOTE Sodium 140 137 Potassium 3.7 3.7 Chloride 109 H 106 Carbon Dioxide 20 L 22 Anion Gap 15 13 BUN 14 Creatinine 0.83 0.66 Estim Creat Clear Calc 103.5 130.2 Estimated GFR > 60 > 60 Random Glucose 97 Lactic Acid Calcium 8.7 D Total Bilirubin AST ALT Alkaline Phosphatase C-Reactive Protein Total Protein Albumin Urine Opiates Screen Ur Buprenorphine Scrn Ur Oxycodone Screen Urine Methadone Screen Urine Fentanyl Screen Ur Barbiturates Screen Valproic Acid < 12.5 L Ur Phencyclidine Scrn Ur Amphetamines Screen U Benzodiazepines Scrn Urine Cocaine Screen U Marijuana (THC) Screen Airway Mallampati Class: I TM Dist: >3cm Neck ROM: Full Denture: Upper and Lower Loose/Missing/Broken Teeth: No Heart: RRR Lungs: CTA Assessment and Plan Assessment Anesthesia Assessment: Anesthesia Plan Discussed and Chart Reviewed Final Anesthetic Review Family History of Problems with Anesthesia: No History of Problems with Anesthesia: No NPO: Yes ASA Class: III and Emergency Final Preanesthetic Review: No Changes in Pt Med Stat, Meds/Allgs Chart Reviewed, Consent Obtained/Reviewed and Anes Risks/Benef Reviewed Patient Risk: Intermediate Procedure Risk: Low Anesthetic Plan Anesthetic Plan: GA Disposition: Standard PACU
--- NOTE | 2024-01-29 12:29 | MHC.SHP ---
Pre-Procedural Eval Section A - 24 Hr Update-Section A only Date of Service: 01/29/24 The patient is an INPATIENT: Yes Changes since office visit: No Cold of Flu in the past 2 weeks, No New Medical Problems, No Changes in Medication and No Patient answered all questions The patient has been examined within 24 hours of the surgical procedure. The History & Physical has been completed within 30 days and I have reviewed it.: Yes Section B - Complete if H&P > 30 days Chief Complaint: Finger Infection Allergies: Allergies Allergy/AdvReac Type Severity Reaction Status Date / Time acetaminophen [From TYLENOL] Allergy Intermediate RASH Verified 01/27/24 22:53 Plan I have reviewed the history and physical and performed a pertinent physical examination on my patient. No changes have occurred unless specified. Time Spent With Patient Time: Total time managing care of this patient today ____ minutes.
--- NOTE | 2024-01-29 13:23 | P.BOP_ITS ---
Brief Operative Note Date of Service: 01/29/24 Pre-op diagnosis: Right long finger flexor tenosynovitis Post-op diagnosis: same Procedure: flexor tenosynovectomy right long finger Implants: none Surgeon: Wili Nieves MD Anesthesia: GLMA and local Was an Building Inspection Engineer used for this Procedure?: Yes Building Inspection Engineer: Cristina Field Estimated blood loss (mL): 50 IV fluids (mL): 500 Pathology: none sent Condition: stable Disposition: PACU
[2024-01-29] MEDS: HYDROmorphone HCl 0.5 MG/0.5 ML SYRINGE IVPUSH (13:35)
[2024-01-29 15:45] LABS: Vancomycin Random 10.8 mcg/mL (15-20)
--- NOTE | 2024-01-29 15:53 | HE.PHANOTE ---
RE: vanco Level on 01/28 came back at 10.8mg/L; increased dose to 1000mg Q8H with predicted trough of 15mg/L; AUC of 478 mg/L. Next level to be drawn 01/29 @1400
[2024-01-29] MEDS: vancomycin HCL 1,000 MG in 0.9 % Sodium Chloride 250 ML 270 MG IV ×2 (16:03→23:27)
[2024-01-29] MEDS: oxyCODONE HCl Immed Release 5 MG TABLET PO ×2 (16:04→22:05)
[2024-01-29] MEDS: Divalproex Sodium 500 MG TABLET.DR 1000 MG PO (21:13)
[2024-01-30] VITALS: PULSE 83
[2024-01-30 04:00] VITALS: BP 119/60; PULSE 80; RESP 16; TEMP 36.8; O2SAT 94
[2024-01-30] MEDS: Clindamycin Phosphate/D5W 600 MG/50 ML PIGGYBACK 100 MG IV ×2 (05:13→12:41)
[2024-01-30 06:03] LABS: Creatinine Clr Calc Pharmacy 132.2; Estimated Glomerular Filt Rate > 60
[2024-01-30 07:24] VITALS: BP 107/54; PULSE 82; RESP 16; TEMP 36.5; O2SAT 92
[2024-01-30] MEDS: Morphine Sulfate 2 MG/ML CARTRIDGE IVPUSH (07:34)
[2024-01-30] MEDS: vancomycin HCL 1,000 MG in 0.9 % Sodium Chloride 250 ML 270 MG IV (07:34)
--- NOTE | 2024-01-30 07:34 | PM.PNORT ---
Subjective Subjective Date of Service: 01/30/24 Interval history: POD1 s/p right hand I&D Splint is c/d/i Patient is resting in bed comfortably No overnight events Pain is managed No additional complaints Physical Exam Vital Signs: Vital Signs: Last Vital Signs Temp 97.7 F 01/30/24 07:24 Pulse 82 01/30/24 07:24 Resp 16 01/30/24 07:24 BP 107/54 L 01/30/24 07:24 Pulse Ox 92 01/30/24 07:24 O2 Del Method Room Air 01/30/24 07:24 BMI result Body Mass Index 32.9 Const: General: cooperative, healthy appearing and no acute distress Resp: Effort & Inspection: normal respiratory effort and able to speak in complete sentences Cardio: Rate: regular rate Peripheral pulses: Peripheral pulses 2+ throughout GI: Palpation (GI): Soft to palpation Skin: Lesions: no lesions Rashes: no rashes Extrem: Other: Right hand less erythema and edema. Able to slightly flex and extend all digits, improved from yesterdays exam. No tenderness to palpation of the palm. Sutures intact. Packing in place. Sensation intact. Capillary refill is brisk. Procedures Date of Service Date of Service: 01/30/24 Progress Note: A&P Assessment and plan (1) Opioid use disorder: Status: Acute (2) Finger infection: Status: Acute Assessment and Plan: Keep splint c/d/i May remove splint tomorrow Gentle ROM encouraged Packing pulled at bedside Daily dressing changes, more frequent if dressings become saturated Continue abx Dispo planning - okay to discharge with po abx from ortho perspective and f/u in out patient office in 1 week (3) Cellulitis: Status: Acute Time Spent With Patient Time: Total time managing care of this patient today ____ minutes. Quality Stroke Does the patient have a stroke diagnosis?: No VTE Prior VTE?: No VTE Risk Level:: Medical - moderate - high VTE Device Contraindication: N/A - Device Ordered VTE Drug Contraindication: Treatment Not Indicated
[2024-01-30] MEDS: 0.9 % Sodium Chloride Flush 3 ML SYRINGE IVFLUSH ×2 (07:42→12:44)
--- NOTE | 2024-01-30 08:45 | HO.POSTANES ---
Post Anesthesia Evaluation Post Anesthesia Evaluation Date of Service: 01/30/24 Vital Signs: Vital Signs Temp Pulse Resp BP Pulse Ox O2 Del Method 01/30/24 07:24 97.7 F 82 16 107/54 L 92 Room Air 01/30/24 04:00 98.2 F 80 16 119/60 94 Room Air 01/29/24 23:39 98.8 F 83 16 139/67 94 Room Air Anesthesia: General LMA Mental Status: Awake Pain Control: Satisfactory Nausea/Vomiting: None Hydration: Adequate Anesthesia-Related Issues: No Anes. Related Issues
[2024-01-30] MEDS: Gabapentin 400 MG CAPSULE 800 MG PO (08:57)
[2024-01-30] MEDS: Divalproex Sodium 500 MG TABLET.DR PO (08:58)
[2024-01-30] MEDS: methADONE HCl 20 MG/2 ML ORAL.CONC 50 MG PO (08:59)
--- NOTE | 2024-01-30 10:08 | P.PNIM_ITS ---
Subjective Subjective Date of Service: 01/30/24 Interval History: f/u on cellulitis of the hand interval hisotry: mild decrease in redness Physical Exam 2 Vital Signs: Vital Signs: Last Vital Signs Temp 97.7 F 01/30/24 07:24 Pulse 82 01/30/24 07:24 Resp 16 01/30/24 07:24 BP 107/54 L 01/30/24 07:24 Pulse Ox 92 01/30/24 07:24 O2 Del Method Room Air 01/30/24 07:24 BMI result Body Mass Index 32.9 General: AO X 3, no acute distress Resp: CTA bilateral CVS: S1,S2,RRR GI: +BS, NT, no distention Skin: No rash 01/28 Neuro: motor grossly intact Psych: appropriate affect Objective Data Active Medications Albuterol Sulfate (Albuterol Sulfate 90 Mcg 8 Gm Inhaler) 2 puff INHALE Q4H PRN PRN Reason: shortness of breath or wheezing Divalproex Sodium (Divalproex Sodium 500 Mg Tablet.) 1,000 mg PO BEDTIME [facility] Last Admin: 01/29/24 21:13 Dose: 1,000 mg Documented By: ROGERS Divalproex Sodium (Divalproex Sodium 500 Mg Tablet.) 500 mg PO DAILY [facility] Last Admin: 01/30/24 08:58 Dose: 500 mg Documented By: YANETH Gabapentin (Gabapentin 400 Mg Capsule) 800 mg PO BID [facility] Last Admin: 01/30/24 08:57 Dose: 800 mg Documented By: YANETH Clindamycin Phosphate (Cleocin) 600 mg in 50 mls @ 100 mls/hr IV Q8H [facility] Last Infusion: 01/30/24 06:22 Dose: Infused Documented By: ROGERS Vancomycin HCl 1,000 mg/ (Sodium Chloride) 270 mls @ 270 mls/hr IV Q8H [facility] Last Infusion: 01/30/24 08:34 Dose: Infused Documented By: YANETH Melatonin (Melatonin 3 Mg Tablet) 6 mg PO BEDTIME PRN PRN Reason: Insomnia Methadone HCl (Methadone Hcl 20 Mg/2 Ml Oral.Conc) 50 mg PO DAILY [facility] Last Admin: 01/30/24 08:59 Dose: 50 mg Documented By: YANETH Morphine Sulfate (Morphine Sulfate 2 Mg/Ml Cartridge) 2 mg IVPUSH Q6H PRN; Protocol PRN Reason: Pain, Severe (Pain Scale 7-10) Last Admin: 01/30/24 07:34 Dose: 2 mg Documented By: YANETH Ondansetron HCl (Ondansetron Hcl 4 Mg/2 Ml Vial) 4 mg IVPUSH Q8H PRN PRN Reason: Nausea and Vomiting Oxycodone HCl (Oxycodone Hcl Immed Release 5 Mg Tablet) 5 mg PO Q4H PRN PRN Reason: Pain, Moderate(Pain Scale 4-6) Last Admin: 01/29/24 22:05 Dose: 5 mg Documented By: ROGERS Pharmacy Consult (Consult Rx Vancomycin Dosing) 1 each MISCELLANE DAILY PRN PRN Reason: Consult order Sodium Chloride (0.9 % Sodium Chloride Flush 3 Ml Syringe) 3 ml IVFLUSH [facility] Last Admin: 01/30/24 07:42 Dose: 3 ml Documented By: YANETH Labs 01/29/24 07:12 01/30/24 05:26 Labs: Laboratory Results - last 24 hr 01/29/24 01/29/24 01/30/24 10:10 14:58 05:26 Hold Purple Top SEE NOTE Estim Creat Clear Calc 132.2 Estimated GFR > 60 Random Vancomycin 10.8 L Valproic Acid < 12.5 L Microbiology Microbiology Results: Microbiology 01/28/24 02:54 Blood Culture - Preliminary Blood - Venous No growth after 48 hours. 01/28/24 02:23 Blood Culture - Preliminary Blood - Venous No growth after 48 hours. Assessment and Plan (1) Opioid use disorder: Status: Acute (2) Finger infection: Status: Acute (3) Cellulitis: Status: Acute Plan 43-year-old female with pertinent history of opiate use disorder, seizure disorder, neuropathy who presents to the emergency department for evaluation of right finger swelling and pain. Sepsis due to right middle finger and hand cellulitis and abscess -continue IV Vanco and Clindamycin, ID had suggested Zyvox however can cause serious serotonin syndrome in conjunction with methadone -Ortho did I and D on 01/28 Polysubstance use disorder: continue methadone, addiction med consult Seizure disorder: Supposed to be on depakote 500 in am, and 1000 at night, last presribed on 10/10/23 for 270 tabs, she said she hss not taken in couple of weeks and the med has not been refilled. Depakote level undetected. continue as ordered Peripheral neuropathy: On gabapentin DVT prophylaxis: Mechanical, Lovenox heparin after surgery Full code IV Abx for cellulitis of the hand, limb threatening Quality Stroke Does the patient have a stroke diagnosis?: No VTE Prior VTE?: No VTE Risk Level:: Medical - moderate - high VTE Device Contraindication: N/A - Device Ordered VTE Drug Contraindication: Treatment Not Indicated
--- NOTE | 2024-01-30 10:09 | HO.ADDICTPRO ---
Subjective Subjective Date of Service: 01/30/24 Reason For Visit: Finger Infection Interim History: Patient seen in follow up reports feeling better overall, including her hand. She reports withdrawal is well managed with current methadone dose, but she would like to increase it a little bit more. She verbalized wanting to be referred to [facility] for continuation of treatment once discharged. Review of Systems Acute medical concerns: Yes Review of Systems Constitutional: Reports as per HPI and Reports no additional constitutional complaints Mental Status Exam Mental Status Exam Patient Appearance: Appropriate Level of Consciousness: Awake and Alert Patient Behavior: Appropriate and Talkative Mood Description: Calm Speech Pattern: Clear Diagnostics Vital Signs (24Hr): Vital Signs - 24 hr 01/29/24 11:50 01/29/24 13:24 01/29/24 13:29 Temperature 97.9 F 97.2 F Pulse Rate 85 80 77 Respiratory Rate 18 14 16 Blood Pressure 117/56 L 134/84 147/84 H Pulse Oximetry 95 99 99 Oxygen Delivery Method Room Air Room Air Room Air 01/29/24 13:34 01/29/24 13:39 01/29/24 13:44 Temperature 97.6 F Pulse Rate 72 75 72 Respiratory Rate 16 16 16 Blood Pressure 122/99 H 146/82 H 156/84 H Pulse Oximetry 99 99 99 Oxygen Delivery Method Room Air Room Air Room Air 01/29/24 13:54 01/29/24 14:09 01/29/24 15:00 Temperature 97.3 F 97.3 F Pulse Rate 82 66 95 Respiratory Rate 16 18 18 Blood Pressure 157/92 H 146/75 H 131/71 Pulse Oximetry 95 95 95 Oxygen Delivery Method Room Air Room Air Room Air 01/29/24 19:14 01/29/24 23:39 01/30/24 04:00 Temperature 98.2 F 98.8 F 98.2 F Pulse Rate 81 83 80 Respiratory Rate 18 16 16 Blood Pressure 132/72 139/67 119/60 Pulse Oximetry 94 94 94 Oxygen Delivery Method Room Air Room Air Room Air 01/30/24 07:24 Temperature 97.7 F Pulse Rate 82 Respiratory Rate 16 Blood Pressure 107/54 L Pulse Oximetry 92 Oxygen Delivery Method Room Air BMI result Body Mass Index 32.9 Labs 01/29/24 07:12 01/30/24 05:26 Labs: Laboratory Results - last 48 hr 01/29/24 01/29/2401/28/24 07:12 10:10 14:58 WBC 11.5 H RBC 4.19 L Hgb 10.8 L Hct 34.2 L MCV 81.6 MCH 25.8 L MCHC 31.6 RDW 16.0 Plt Count 254 MPV 10.0 Immature Gran % (Auto) 0.3 Neut % (Auto) 72.7 Lymph % (Auto) 18.5 L Emmet % (Auto) 7.7 Eos % (Auto) 0.6 Baso % (Auto) 0.2 Lymph # (Auto) 2.1 Emmet # (Auto) 0.9 Eos # (Auto) 0.1 Baso # (Auto) 0.0 Abs Immat Gran (auto) 0.03 Absolute Neuts (auto) 8.3 Absolute Nucleated RBC 0.000 Nucleated RBC % (auto) 0.0 Hold Purple Top SEE NOTE Sodium 137 Potassium 3.7 Chloride 106 Carbon Dioxide 22 Anion Gap 13 Creatinine 0.66 Estim Creat Clear Calc 130.2 Estimated GFR > 60 Random Vancomycin 10.8 L Valproic Acid < 12.5 L 01/30/24 05:26 WBC RBC Hgb Hct MCV MCH MCHC RDW Plt Count MPV Immature Gran % (Auto) Neut % (Auto) Lymph % (Auto) Emmet % (Auto) Eos % (Auto) Baso % (Auto) Lymph # (Auto) Emmet # (Auto) Eos # (Auto) Baso # (Auto) Abs Immat Gran (auto) Absolute Neuts (auto) Absolute Nucleated RBC Nucleated RBC % (auto) Hold Purple Top SEE NOTE Sodium Potassium Chloride Carbon Dioxide Anion Gap Creatinine 0.65 Estim Creat Clear Calc 132.2 Estimated GFR > 60 Random Vancomycin Valproic Acid Imaging Radiology Impressions: ITS Impressions Hand X-Ray 01/27/24 23:53 IMPRESSION: 1. Diffuse soft tissue swelling. 2. No acute fracture or malalignment. 3. No radiographic evidence of osteomyelitis. Medications Medications Current Medications Albuterol Sulfate (Albuterol Sulfate 90 Mcg 8 Gm Inhaler) 2 puff INHALE Q4H PRN PRN Reason: shortness of breath or wheezing Divalproex Sodium (Divalproex Sodium 500 Mg Tablet.) 1,000 mg PO BEDTIME [facility] Last Admin: 01/29/24 21:13 Dose: 1,000 mg Divalproex Sodium (Divalproex Sodium 500 Mg Tablet.Dr) 500 mg PO DAILY [facility] Last Admin: 01/30/24 08:58 Dose: 500 mg Gabapentin (Gabapentin 400 Mg Capsule) 800 mg PO BID [facility] Last Admin: 01/30/24 08:57 Dose: 800 mg Clindamycin Phosphate (Cleocin) 600 mg in 50 mls @ 100 mls/hr IV Q8H [facility] Last Infusion: 01/30/24 06:22 Dose: Infused Vancomycin HCl 1,000 mg/ (Sodium Chloride) 270 mls @ 270 mls/hr IV Q8H [facility] Last Infusion: 01/30/24 08:34 Dose: Infused Melatonin (Melatonin 3 Mg Tablet) 6 mg PO BEDTIME PRN PRN Reason: Insomnia Methadone HCl (Methadone Hcl 20 Mg/2 Ml Oral.Conc) 50 mg PO DAILY [facility] Last Admin: 01/30/24 08:59 Dose: 50 mg Morphine Sulfate (Morphine Sulfate 2 Mg/Ml Cartridge) 2 mg IVPUSH Q6H PRN; Protocol PRN Reason: Pain, Severe (Pain Scale 7-10) Last Admin: 01/30/24 07:34 Dose: 2 mg Ondansetron HCl (Ondansetron Hcl 4 Mg/2 Ml Vial) 4 mg IVPUSH Q8H PRN PRN Reason: Nausea and Vomiting Oxycodone HCl (Oxycodone Hcl Immed Release 5 Mg Tablet) 5 mg PO Q4H PRN PRN Reason: Pain, Moderate(Pain Scale 4-6) Last Admin: 01/29/24 22:05 Dose: 5 mg Pharmacy Consult (Consult Rx Vancomycin Dosing) 1 each MISCELLANE DAILY PRN PRN Reason: Consult order Sodium Chloride (0.9 % Sodium Chloride Flush 3 Ml Syringe) 3 ml IVFLUSH QSHIFT [facility] Last Admin: 01/30/24 07:42 Dose: 3 ml Allergies Allergies Allergy/AdvReac Type Severity Reaction Status Date / Time acetaminophen [From TYLENOL] Allergy Intermediate RASH Verified 01/27/24 22:53 Assessment & Plan Assessment & Plan (1) Opioid use disorder: Status: Acute Code(s): F11.90 - Opioid use, unspecified, uncomplicated Assessment and Plan: would like to increase dose by 5mg, overall feels much improved withdrawal sx (increase to 55mg QD) would like referral to [facility] --will send out Total time managing care of this patient today __20__ minutes.
[2024-01-30 11:50] VITALS: O2SAT 97
--- NOTE | 2024-01-30 13:04 | MHC.CM.PN ---
EMR REVIEWED AND PER MD ROUNDS, PT IS NOT MEDICALLY CLEARED FOR DC. REFERRAL SENT TO [facility] HOWEVER THEY ARE UNABLE TO ACCEPT PT IS NOT ACTIVE WITH HER PCP. PT IS AGREEABLE TO TEACHING HERE ON WOUND CARE THEN HOME WITH ASSIST FROM AND FRIEND. CM WILL CONTINUE TO FOLLOW FOR ANY CHANGE TO DC PLAN.
[2024-01-30 15:09] LABS: Vancomycin Random 11.2 mcg/mL (15-20)
--- NOTE | 2024-01-30 15:17 | HE.PHANOTE ---
VANCO increasing dose to 1250 Q8H per subtherapeutic trough and stable renal function. next trough to be drawn 01/30 @1400, predicted AUC 534, predicted trough 16.3.
[2024-01-30 15:27] VITALS: BP 115/68; PULSE 93; RESP 16; TEMP 37; O2SAT 93
[2024-01-30] MEDS: vancomycin HCL 1,250 MG in 0.9 % Sodium Chloride 250 ML 166.67 MG IV (15:41)
[2024-01-30] MEDS: oxyCODONE HCl Immed Release 5 MG TABLET PO (15:41)
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
[2024-01-30] MEDS: Nicotine Polacrilex 2 MG GUM BUCCAL (17:48)
--- NOTE | 2024-01-30 18:01 | P.DS_ITS ---
DS: Providers Provider Date of Service: 01/30/24 Date of admission: 01/28/24 02:53 Primary care physician: Alexandria Manrique MD Consults: 01/28/24 02:42 Consult to Orthopedics Stat Consulting Provider: [facility] Reason for consultation: R hand infection Has provider been notified: Yes 01/28/24 02:52 Addiction Medicine Routine Consulting Provider: Addiction Covering Reason for consultation: opioid use disorder 01/28/24 12:41 Consult to Infectious Diseases Routine Consulting Provider: [facility] Reason for consultation: Cellulitis of the hand DS: Diagnosis Discharge Diagnosis (1) Opioid use disorder: Status: Acute (2) Finger infection: Status: Acute DS: Summary Hospital Course Hospital Course: Chief Complaint: Finger infection This is a 43-year-old female with pertinent history of opiate use disorder, seizure disorder, neuropathy who presents to the emergency department for evaluation of right finger swelling and pain. Patient states it started few days prior to presentation. Initially she had pain in her right middle finger. This progressed and she noted that it was red and swollen. Patient went to urgent care 1 day prior to presentation and was prescribed p.o. antibiotics but no improvement noted. On the day of presentation, patient states it has been draining purulent fluid. She is unable to bend or flex the finger. States she currently only sniffs drugs, last used intravenously 2 months ago. No previous infection. No fever, chills, nausea, vomiting, chest discomfort, palpitations, shortness of breath, abdominal pain changes in urinary or bowel habits. In the emergency department, patient was found to be septic and initiated on empiric IV antibiotics. Orthopedic surgery consulted who will take the patient to the OR in a.m. Hospital course: The patient was admitted and initially treated with IV Vancomycin and Zosyn, with Zosyn later switched to Clindamycin. She was evaluated by orthopedics and underwent incision and drainage (I&D) on 01/28. Following reevaluation, it was recommended that she be discharged on oral antibiotics. Infectious Disease suggested a regimen of Augmentin and Doxycycline for two weeks. Time Attestation Discharge Coordination Time (in mins): 45 Quality: Safe Use of Opioids Does Pt have an Active Cancer Diagnosis on the Problem List?: No Quality: Stroke Does the patient have a stroke diagnosis?: No Physical Exam Vital Signs: Vital Signs: Last Vital Signs Temp 98.6 F 01/30/24 15:27 Pulse 93 01/30/24 15:27 Resp 16 01/30/24 15:27 BP 115/68 01/30/24 15:27 Pulse Ox 93 01/30/24 15:27 O2 Del Method Room Air 01/30/24 15:27 BMI result Body Mass Index 32.9 DS: Data Data Completed and Pending Labs on day of discharge: Laboratory Results - last 24 hr 01/30/24 01/30/24 05:26 14:30 Hold Purple Top SEE NOTE Creatinine 0.65 Estim Creat Clear Calc 132.2 Estimated GFR > 60 Random Vancomycin 11.2 L Preliminary micro results at discharge 01/28/24 02:54 Blood Culture - Preliminary Blood - Venous No growth after 48 hours. 01/28/24 02:23 Blood Culture - Preliminary Blood - Venous No growth after 48 hours. Discharge Plan Discharge Anticipated Discharge Date/Time: 01/30/24 17:53 Patient Disposition: Home Health Service Discharge Diagnosis: Cellulitis and abscess of the hand Referrals: Wili Nieves MD [Physician] - 1 Week Alexandria Munguia MD [Primary Care Provider] - 1 Week Discharge Medications: New amoxicillin-pot clavulanate 875-125 mg tablet 1 tab PO BID Qty: 28 0RF doxycycline hyclate 100 mg tablet 100 mg PO BID 14 Days Qty: 28 0RF Continued albuterol sulfate 90 mcg/actuation HFA aerosol inhaler 2 puff PO Q4H PRN (Reason: shortness of breath or wheezing) 30 Days Qty: 8.5 6RF ibuprofen 800 mg tablet 800 mg PO Q8H PRN (Reason: Pain) divalproex 500 mg tablet,delayed release (DR/EC) 500 mg PO QAM gabapentin 800 mg tablet 800 mg PO BID divalproex 500 mg tablet,delayed release (DR/EC) 1,000 mg PO BEDTIME Discontinued cephalexin 500 mg capsule 500 mg PO BID 7 Days Qty: 14 0RF Discharge Orders: Discharge Order (Routine); Ordered 01/30/24 Ordered By: Dank Pierson Diet: Advance to usual diet Activity on Discharge: As tolerated Stand Alone Forms: Patient Portal Discharge page Print Language: Kinyarwanda Care Plan Goals: Proper healing of the wound Health Concerns: cellulitis and abscess of hand Plan of Treatment: take Augmentin and Doxycyline as recommended and follow up with your Doctor in a week call Dr. Nieves's office for follow up appointment Dry dressing to the wound daily Assessment: see above
--- NOTE | 2024-02-03 17:37 | P.OP_ITS ---
Operative Note Operative Note Date of Service: 01/29/24 Narrative: Date of Service: 01/29/24 Pre-op diagnosis: Right long finger flexor tenosynovitis Post-op diagnosis: same Procedure: flexor tenosynovectomy right long finger Implants: none Surgeon: Wili Nieves MD Anesthesia: GLMA and local Was an Technical Account Representative used for this Procedure?: Yes Technical Account Representative: Cristina Field Estimated blood loss (mL): 50 IV fluids (mL): 500 Pathology: none sent Condition: stable Disposition: PACU Patient was brought to the operating room and placed supine on the surgical table. She was prepped and draped in standard sterile fashion and a time out was called to identify proper site, proper procedure and IV antibiotics per weight were administered. I began by making a [place] incision from the proximal phalanx proximally into the palmar crease. There was immediate expression of copious purulence. There was superficial sloughing. I dissected directly down to the flexor tendon and incised the sheath proximal and including the A1 ede. The A2 ede was left intact and the sheath distal to this ede was also incised. I irrigated copiously distal to the A2 ede and then proximal into the mid-palmar space. There was purulence here as well . I used a tenotomy scissor to spread the soft tissue in the palmar space. I irrigated copiously with gravity lavage and removed all necrotic material. Care was taken to stay over the flexor tendon and avoid the superficial nerves. Once I was satisfied t hat the wound had been extensively irrigated and there was no evidence of infection I closed the skin with nylon and applied sterile dressing. I then placed the hand in a well padded volar splint in a position of safety. She was extubated and brought to the recovery room in stable condition. There were no known complications.
== END 2024-01-30 18:15 | disposition home health service (06) | DRG 710 ==
LOC: HO.ED 01-28 02:44 → HO.EDOVER 01-28 02:58 → HO.S3 01-28 19:30
PROVIDERS: Orthopaedic Surgery; Admitting Provider Student in an Organized Health Care Education/Training Program; Emergency Provider Emergency Medicine; PCP Internal Medicine; Visit Provider Internal Medicine
PROC: 0LB70ZZ Excision of Right Hand Tendon, Open Approach (ICD-10-PCS; principal; 2024-01-29 11:40)
DX: A41.9 Sepsis, unspecified organism (principal); F17.210 Nicotine dependence, cigarettes, uncomplicated; M65.9 Synovitis and tenosynovitis, unspecified; L03.011 Cellulitis of right finger; G40.909 Epilepsy, unspecified, not intractable, without status epilepticus; G62.9 Polyneuropathy, unspecified; F19.90 Other psychoactive substance use, unspecified, uncomplicated; Z71.6 Tobacco abuse counseling; Z79.899 Other long term (current) drug therapy
CPT/HCPCS: 36415; 73130; 80048; 80051; 80053; 80164; 80202; 80307; 82565; 83605; 85025; 85652; 86140; 87040; 99285; J0736; J1170; J2270; J2543; J2704; J2795; J3370; J3371

== ENCOUNTER → 2024-01-28 02:53 | Outpatient (BNV) | payer OTHER, SELFPAY | PROVIDERS: Admitting Provider Student in an Organized Health Care Education/Training Program; Emergency Provider Emergency Medicine; PCP Internal Medicine; Visit Provider Internal Medicine | DX: F11.90 Opioid use, unspecified, uncomplicated (principal); L08.9 Local infection of the skin and subcutaneous tissue, unspecified | CPT/HCPCS: 99222 ==

== ENCOUNTER → 2024-01-28 02:53 | Outpatient (BNV) | payer OTHER, SELFPAY | PROVIDERS: Admitting Provider Student in an Organized Health Care Education/Training Program; Emergency Provider Emergency Medicine; PCP Internal Medicine; Visit Provider Physician Assistant | DX: F11.90 Opioid use, unspecified, uncomplicated (principal); L08.9 Local infection of the skin and subcutaneous tissue, unspecified; L03.113 Cellulitis of right upper limb | CPT/HCPCS: 26145; 99024; 99222; 99232 ==

== ENCOUNTER → 2024-01-28 02:53 | Outpatient (BNV) | payer OTHER, SELFPAY | PROVIDERS: Admitting Provider Student in an Organized Health Care Education/Training Program; Emergency Provider Emergency Medicine; PCP Internal Medicine; Visit Provider Student in an Organized Health Care Education/Training Program | DX: L03.011 Cellulitis of right finger (principal); F11.90 Opioid use, unspecified, uncomplicated | CPT/HCPCS: 99222; 99232; 99239; 99499 ==

== ENCOUNTER → 2024-01-28 02:53 | Outpatient (BNV) | payer OTHER, SELFPAY | PROVIDERS: Admitting Provider Student in an Organized Health Care Education/Training Program; Emergency Provider Emergency Medicine; PCP Internal Medicine; Visit Provider Nurse Practitioner Psychiatric/Mental Health | DX: F11.90 Opioid use, unspecified, uncomplicated (principal) | CPT/HCPCS: 99232 ==